=== PATIENT | female | born 1990 | race American Indian/Alaskan Native ===

== ENCOUNTER 2017-06-17 10:27 | Inpatient (IN) | payer MEDICAID ==
[2017-06-17] MEDS ORDERED: SUBLIMAZE IV PRN (13:13)
[2017-06-17] MEDS ORDERED: STADOL IV PRN (13:13)
[2017-06-17] MEDS ORDERED: ZOFRAN IV PRN ×2 (13:13→21:06)
[2017-06-17] MEDS ORDERED: PHENERGAN PR PRN ×2 (13:13→21:06)
[2017-06-17] MEDS ORDERED: BRETHINE SUB-Q PRN (13:13)
[2017-06-17] MEDS ORDERED: MINERAL OIL PO PRN (13:13)
[2017-06-17] MEDS ORDERED: ePHEDrine SULFATE IV PRN ×2 (13:13→15:02)
[2017-06-17] MEDS ORDERED: BRETHINE IVP PRN (13:13)
[2017-06-17] MEDS ORDERED: XYLOCAINE 2% INFILTRATI ONE ×2 (13:13→16:55)
[2017-06-17] MEDS: LACTATED RINGERS 1,000 ML IV SCH ×3 (13:47→18:10)
--- NOTE | 2017-06-17 13:52 | History and Physical Report ---
History of Present Illness Date of examination: 06/17/17 Date of admission: 06/17/17 12:04 Chief complaint: CONTRACTIONS History of present illness: .This is a 26 yo at 39+ weeks came into triage complaining of contractions. patient was noted to be 4cm and mynor. patient admitted to labor and delivery . She is a patient of [facility] since 13 weeks as she was transferred from another facility. Patient has a hx of migraines and mild asthma. 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 denies: smoking, alcohol abuse, prescription drug abuse - Obstetrical History Expected Date of Delivery: 06/25/17 Actual Gestation: 38 Week(s) 6 Day(s) : 3 Para: 0 Hx # Term Pregnancies: 0 Number of Pregnancies: 0 Spontaneous Abortions: 0 Induced : 2 Number of Living Children: 0 Medications and Allergies Allergies Allergy/AdvReac Type Severity Reaction Status Date / Time No Known Allergies Allergy Unverified 06/17/17 10:39 Home Medications Medication Instructions Recorded Confirmed Last Taken Type Prena1 Chew Tablet 1 tab PO DAILY 06/17/17 06/17/17 06/16/17 09:00 History Active Meds: Active Medications Butorphanol Tartrate (Stadol) 2 mg IV Q2H PRN PRN Reason: Pain , Severe (7-10) Ephedrine Sulfate (Ephedrine Sulfate) 10 mg IV Q2M PRN PRN Reason: Hypotension Fentanyl (Sublimaze) 100 mcg IV Q2H PRN PRN Reason: Labor Pain Lactated Ringer's (Lactated Ringers) 1,000 mls @ 125 mls/hr IV DIRECT IZABELLA Last Admin: 06/17/17 13:47 Dose: 125 mls/hr Oxytocin/Sodium Chloride (Pitocin/Ns 20 Unit/1000ml Drip) 20 units in 1,000 mls @ 125 mls/hr IV DIRECT IZABELLA Oxytocin/Sodium Chloride (Pitocin/Ns 30 Unit/500ml) 30 units in 500 mls @ 0 mls /hr IV TITR IZABELLA; Protocol Oxytocin/Sodium Chloride (Pitocin/Ns 30 Unit/500ml) 30 units in 500 mls @ 1 mls /hr IV TITR IZABELLA; Protocol Mineral Oil (Mineral Oil) 30 ml PO QHS PRN PRN Reason: Constipation Ondansetron HCl (Zofran) 4 mg IV Q8H PRN PRN Reason: Nausea And Vomiting Promethazine HCl (Phenergan) 25 mg FL Q6H PRN PRN Reason: N/V if unable to take po Terbutaline Sulfate (Brethine) 0.25 mg SUB-Q ONCE PRN PRN Reason: Hyperstimulation/Hypertonicity Terbutaline Sulfate (Brethine) 0.25 mg IVP ONCE PRN PRN Reason: Hyperstimulation/Hypertonicity Review of Systems All systems: negative Genitourinary: contractions - Vital Signs Vital signs: Vital Signs Pulse BP Pulse Ox 101 H 141/88 100 06/17/17 10:58 06/17/17 10:58 06/17/17 10:58 Temp Pulse Resp BP Pulse Ox 99.3 F 99 H 20 135/69 100 06/17/17 11:21 06/17/17 11:53 06/17/17 11:21 06/17/17 11:21 06/17/17 11:53 - Physical Exam Breasts: Positive: normal Cardiovascular: Regular rate, Normal S1 Lungs: Positive: Clear to auscultation, Normal air movement Abdomen: Positive: normal appearance, soft, normal bowel sounds. Negative: distention, tenderness, guarding Genitourinary (Female): Positive: normal external genitalia, normal perenium Vulva: both: normal Vagina: Positive: normal moisture Uterus: Positive: normal size Anus/Rectum: Positive: normal perianal skin, heme negative Extremities: Positive: normal Deep Tendon Reflex Grade: Normal +2 - Obstetrical FHR: category 1 Uterine Contraction Monitor Mode: External Cervical Dilatation: 4 Cervical Effacement Percentage: 100 station: -1 Uterine Contraction Pattern: Regular Uterine Tone Measurement Phase: Contraction Uterine Contraction Intensity: Moderate Results All other labs normal. Assessment and Plan A/P IUP 38 +6 weeks GBS neg IVF, labs sent offer epidural expect vaginal delivery
[2017-06-17] MEDS ORDERED: PITOCin/NS 20 UNIT/1000ML DRIP 20 UNITS/1,000 ML BAG IV SCH ×2 (14:00→21:06)
[2017-06-17] MEDS ORDERED: PITOCin/NS 30 UNIT/500ML 30 UNITS/500 ML BAG IV SCH (14:00)
[2017-06-17] MEDS: PITOCin/NS 30 UNIT/500ML 30 UNITS/500 ML BAG IV SCH ×4 (14:25→16:33)
[2017-06-17 14:35] LABS: Hematocrit 36.5 % (30.3-42.9); Hemoglobin 12.3 gm/dl (10.1-14.3); Mean Corpuscular HGB Conc 34 % (30-34); Mean Corpuscular Hemoglobin 31 pg (28-32); Mean Corpuscular Volume 92 fl (79-97); Platelet Count 228 K/mm3 (140-440); Red Blood Count 3.96 M/mm3 (3.65-5.03); Red Cell Distribution Width 14.3 % (13.2-15.2)
[2017-06-17] MEDS ORDERED: NARCAN 2 MG/2 ML IV PRN (15:02)
--- NOTE | 2017-06-17 15:02 | Anesthesia Consultation ---
Anesthesia Consult and Med Hx Date of service: 06/17/17 - Airway Anesthetic Teeth Evaluation: Good ROM Head & Neck: Adequate Mental/Hyoid Distance: Adequate Mallampati Class: Class II Intubation Access Assessment: Probably Good - Pre-Operative Health Status ASA Pre-Surgery Classification: ASA2 Proposed Anesthetic Plan: Epidural, Spinal - Pulmonary Hx Asthma: Yes (last attack 2012) COPD: No Hx Pneumonia: No - Cardiovascular System Hx Hypertension: No - Central Nervous System Hx Seizures: No Hx Psychiatric Problems: No - Endocrine Hx Renal Disease: No Hx End Stage Renal Disease: No Hx Hypothyroidism: No Hx Hyperthyroidism: No - Hematic Hx Anemia: No Hx Sickle Cell Disease: No - Other Systems Hx Alcohol Use: No Hx Obesity: Yes (BMI 39.1)
[2017-06-17] MEDS ORDERED: fentaNYL-BUPIV 2 MCG/ML-0.125% 200 MCG/100 ML BAG EPIDURAL SCH (16:00)
[2017-06-17] MEDS ORDERED: XYLOCAINE MPF 2% ONE (18:30)
[2017-06-17] MEDS ORDERED: METHERGINE IM ONE (18:52)
--- NOTE | 2017-06-17 19:06 | Procedure Note ---
OB Delivery Note - Delivery Date of Delivery: 06/17/17 Surgeon: CHRISTINA KRAFT Estimated blood loss: other (400 mL) - Vaginal Delivery presentation: vertex Delivery position: OP Intrapartum events: meconium, prolonged active phase, mult.variable deceleratio Delivery induction: none Delivery augmentation: rupture of membranes, pitocin Delivery monitor: external FHT, external uterine Route of delivery: vacuum extraction Indicators for instrumentation: nonreassuring FHR tracing Delivery placenta: spontaneous Delivery cord: 3 umbilical vessels Episiotomy: none Delivery laceration: 1st degree Delivery repair: vicryl Anesthesia: epidural Delivery comments: Pt progressed to complete/complete/+1 and pushed to deliver a viable female over intact perineum via VAVD under epidural anesthesia. Head visible at introitus without pushing. Head noted to be in LOP position. Kiwi vacuum applied. Head delivered with two pulls, one pop off. Shoulders and body delivered easily. Cord clamped and cut and handed to NICU staff in attendance. Placenta delivered spontaneously (3VC, intact). Vagina and perineum explored. First degree perineal repaired with a figure of eight of 3-0 Vicryl. EBL 400 mL. - Infant A at 1 minute: 8 at 5 minutes: 9 Gender: Female (2874g (6lb 5oz) @ 1845 pm)
[2017-06-17] MEDS ORDERED: LANSINOH TP PRN (21:06)
[2017-06-17] MEDS ORDERED: SODIUM CHLORIDE FLUSH SYRINGE 10 ML IV NR (21:06)
[2017-06-17] MEDS ORDERED: TUCKS PAD TP PRN (21:06)
[2017-06-17] MEDS ORDERED: MILK OF MAGNESIA PO PRN (21:06)
[2017-06-17] MEDS ORDERED: TYLENOL PO PRN (21:06)
[2017-06-17] MEDS ORDERED: DULCOLAX PR PRN (21:06)
[2017-06-17] MEDS ORDERED: PHENERGAN PO PRN (21:06)
[2017-06-17] MEDS ORDERED: BENADRYL PO PRN (21:06)
[2017-06-17] MEDS: MOTRIN PO SCH (21:55)
[2017-06-17] MEDS: FEOSOL PO SCH (21:55)
[2017-06-18] MEDS: MOTRIN PO SCH ×4 (03:53→22:04)
[2017-06-18 06:23] LABS: Hematocrit 33.3 % (30.3-42.9)
[2017-06-18] MEDS: NORCO 5/325 PO PRN (06:28)
--- NOTE | 2017-06-18 07:59 | Progress Note ---
Assessment and Plan O: VSS AF PP H/H: 11.0/33.3 A: Stable PP Day 1 Subjective - Subjective Date of service: 06/18/17 Patient reports: appetite normal, voiding normally, pain well controlled (r/o left side ligament/hip pain. po meds releive discomfort. Able to ambulate w/o assist and has rule range of motion, ), flatus, ambulating normally : doing well, in NICU Objective - Vital Signs Latest vital signs: Vital Signs Temp Pulse Resp BP BP Pulse Ox 06/18/17 04:10 98.9 F 87 20 112/66 06/17/17 21:43 99.0 F 109 H 20 150/82 06/17/17 20:11 117 H 100 06/17/17 20:06 117 H 100 06/17/17 20:05 115 H 149/81 06/17/17 20:01 117 H 100 06/17/17 20:00 98.9 F 118 H 18 140/60 99 06/17/17 19:56 119 H 100 06/17/17 19:51 122 H 99 06/17/17 19:50 117 H 143/65 06/17/17 19:46 124 H 98 06/17/17 19:45 117 H 143/65 99 06/17/17 19:41 50 L 84 06/17/17 19:36 121 H 143/96 95 06/17/17 19:31 123 H 99 06/17/17 19:30 126 H 143/96 100 06/17/17 19:26 121 H 98 06/17/17 19:21 123 H 100 06/17/17 19:20 125 H 141/66 90 06/17/17 19:15 121 H 141/66 06/17/17 19:05 125 H 148/70 95 06/17/17 19:04 129 H 82 L 06/17/17 19:00 99.4 F 121 H 16 141/66 95 06/17/17 18:56 116 H 144/65 06/17/17 18:35 107 H 76 L 06/17/17 18:21 100 H 136/73 06/17/17 18:15 114 H 100 06/17/17 18:10 116 H 99 06/17/17 18:05 114 H 100 06/17/17 18:03 104 H 89 06/17/17 18:00 104 H 100 06/17/17 17:55 103 H 99 06/17/17 17:50 104 H 134/68 100 06/17/17 17:49 113 H 92 06/17/17 17:45 108 H 98 06/17/17 17:35 112 H 100 06/17/17 17:33 117 H 94 06/17/17 17:30 110 H 100 06/17/17 17:28 108 H 90 06/17/17 17:25 112 H 100 06/17/17 17:20 109 H 136/79 100 06/17/17 17:15 102 H 100 06/17/17 17:10 95 H 100 06/17/17 16:51 97 H 140/99 06/17/17 16:21 86 135/78 06/17/17 15:46 100 H 137/74 06/17/17 15:40 105 H 133/76 06/17/17 15:34 106 H 129/70 06/17/17 15:29 129 H 143/81 06/17/17 15:24 109 H 143/80 100 06/17/17 15:20 118 H 143/86 06/17/17 15:19 129 H 100 06/17/17 15:14 115 H 135/98 100 06/17/17 15:09 124 H 100 06/17/17 13:53 106 H 134/77 06/17/17 13:48 98.2 F 106 H 16 134/77 06/17/17 11:53 99 H 100 06/17/17 11:48 101 H 100 06/17/17 11:43 97 H 100 06/17/17 11:38 101 H 100 06/17/17 11:33 96 H 100 06/17/17 11:28 113 H 99 06/17/17 11:23 109 H 100 06/17/17 11:21 99.3 F 101 H 20 135/69 99 06/17/17 11:18 92 H 99 06/17/17 11:13 104 H 99 06/17/17 11:08 89 99 06/17/17 11:03 93 H 100 06/17/17 11:02 92 H 135/69 06/17/17 10:58 101 H 141/88 100 Intake and Output 06/17/17 06/18/17 06/18/17 22:59 06:59 14:59 Intake Total 951.228 7932 Output Total 900 500 600 Balance -180.817 500 -600 Intake: IV 845.133 3525 Lactated Ringers 1,000 ml 464.583 @ 125 mls/hr IV DIRECT IZABELLA Rx#:[id number] PITOCin/NS 20 UNIT/1000ML 1000 DRIP 20 units In 1,000 ml @ 250 mls/hr IV DIRECT IZABELLA Rx#:[id number] PITOCin/NS 30 UNIT/500ML 14.600 30 units In 500 ml @ As Directed IV TITR IZABELLA Rx#: [id number] Oral 240 Output: Urine 900 500 600 Void 900 500 600 Other: Total, Intake Amount 240 Total, Output Amount 900 500 600 # Voids Void 1 1 Estimated Blood Loss 400 - Exam Breasts: Present: deferred Lungs: Present: Normal air movement Abdomen: Present: normal appearance, soft. Absent: distention, tenderness Uterus: Present: normal, firm, fundal height below umbilicus (2 below U, ML). Absent: bogginess Extremities: Present: normal - Labs Labs: Abnormal lab results 06/17/17 Range/Units 14:15 WBC 12.1 H (4.5-11.0) K/mm3
[2017-06-18] MEDS: FEOSOL PO SCH ×2 (09:53→22:04)
[2017-06-18] MEDS ORDERED: M-M-R II VACCINE SUB-Q ONE (19:08)
[2017-06-18] MEDS ORDERED: BOOSTRIX IM ONE (19:08)
[2017-06-19] MEDS: MOTRIN PO SCH (04:57)
[2017-06-19] MEDS: FEOSOL PO SCH ×2 (09:25→21:30)
[2017-06-19] MEDS: NORCO 5/325 PO PRN (09:25)
--- NOTE | 2017-06-19 16:04 | Progress Note ---
Assessment and Plan A: PPD#2 s/p VAVD at term P: Discharge home today. Subjective - Subjective Date of service: 06/19/17 Principal diagnosis: Gestational HTN, s/p VAVD at term Interval history: Pt without complaints. Denies PIH symptoms. Patient reports: appetite normal, voiding normally, pain well controlled, ambulating normally, no nauseated : in NICU (but plan to discharge home today ) Objective - Vital Signs Latest vital signs: Vital Signs Temp Pulse Resp BP BP Pulse Ox 06/19/17 00:00 98.4 F 78 20 142/73 06/18/17 16:19 97.6 F 72 16 114/68 98 Intake and Output 06/19/17 06/19/17 06/19/17 06:59 14:59 22:59 Intake Total 240 Balance 240 Intake: Oral 240 Other: Total, Intake Amount 240 # Voids Void 1 - Exam Breasts: Present: deferred Cardiovascular: Present: Regular rate Lungs: Present: Clear to auscultation Abdomen: Present: soft (obese) Uterus: Present: fundal height below umbilicus Extremities: Present: edema
--- NOTE | 2017-06-19 16:04 | Discharge Summary ---
Providers - Providers Date of Admission: 06/17/17 12:04 Date of discharge: 06/19/17 Attending physician: CHRISTINA KRAFT 06/17/17 21:06 Consult to Hotel Sales Manager [CONS] Routine Reason For Exam: assistance with , SNS Primary care physician: CHRISTINA KRAFT Hospitalization Reason for admission: active labor Delivery: vacuum extraction Procedure details: Please see delivery note. Episiotomy: none Laceration: 1st degree Other procedures: none complications: none Discharge diagnosis: IUP at term delivered [place] baby: female Hospital course: Pt was admitted in active labor and went on to have an vacuum delivery which she tolerated well. Her course was complicated by gestational hypertension. She met discharge criteria on PPD#2. She will follow up in 1 week for an incision check. Condition at discharge: Stable Disposition: DC-01 TO HOME OR SELFCARE - Discharge Diagnoses (1) Term of female Status: Acute (2) Obesity Status: Acute Qualifiers: Obesity type: unspecified obesity type Obesity classification: adult class 2 (BMI 35 - 39.9) Body mass index: BMI 39.0-39.9 (3) Gestational hypertension affecting first Status: Acute Plan - Discharge Medications Prescriptions: HYDROcodone/APAP 5-325 [[place] 5/325] 1 each PO Q6HR PRN #20 tablet PRN Reason: Pain Ibuprofen [Motrin] 800 mg PO Q8HR PRN #30 tablet PRN Reason: Pain - Provider Discharge Summary Activity: routine, no sex for 6 weeks, no heavy lifting 4 weeks, no strenuous exercise Diet: routine Instructions: routine Additional instructions: [] Smoking cessation referral if applicable(refer to patient education folder for contact #) [] Refer to [facility] Booklet Call your doctor immediately for: * Fever > 100.5 * Heavy vaginal bleeding ( >1 pad per hour) * Severe persistent headache * Shortness of breath * Reddened, hot, painful area to leg or breast * Drainage or odor from incision. * Keep incision clean and dry at all times and follow doctor's instructions regarding bathing/showering - Follow up plan Follow up: ANEUDY CLARK CNM [Advanced Practice Nurse] - 07/15/17 (please schedule exam )
[2017-06-19 16:33] LABS: Hematocrit 35.6 % (30.3-42.9); Hemoglobin 11.8 gm/dl (10.1-14.3); Mean Corpuscular HGB Conc 33 % (30-34); Mean Corpuscular Hemoglobin 31 pg (28-32); Mean Corpuscular Volume 94 fl (79-97); Platelet Count 247 K/mm3 (140-440); Red Blood Count 3.79 M/mm3 (3.65-5.03); Red Cell Distribution Width 14.5 % (13.2-15.2)
[2017-06-19 16:56] LABS: Alanine Aminotransferase 15 units/L (7-56); Uric Acid 5.9 mg/dL (3.5-7.6)
[2017-06-19 19:18] LABS: Bacteria,Urine 1+ /HPF (Negative); Bilirubin,Urine NEG (Negative); Blood,Urine LG (Negative); Color,Urine Yellow (Yellow); Mucus,Urine FEW /HPF
[2017-06-20 03:33] VITALS: BP 146/88
== END 2017-06-19 22:15 | disposition home or self-care (01) | DRG 774 ==
LOC: TRG 10:27 → LD 12:04 → OB 20:39
PROVIDERS: ADMIT Obstetrics & Gynecology; ATTEND Obstetrics & Gynecology
PROC: 3E0R3BZ Introduction of Anesthetic Agent into Spinal Canal, Percutaneous Approach (ICD-10-PCS; principal; 2017-06-17)
PROC: 00HU33Z Insertion of Infusion Device into Spinal Canal, Percutaneous Approach (ICD-10-PCS; 2017-06-17)
PROC: 0HQ9XZZ Repair Perineum Skin, External Approach (ICD-10-PCS; 2017-06-17)
PROC: 10D07Z6 Extraction of Products of Conception, Vacuum, Via Natural or Artificial Opening (ICD-10-PCS; 2017-06-17)
PROC: 3E0234Z Introduction of Serum, Toxoid and Vaccine into Muscle, Percutaneous Approach (ICD-10-PCS; 2017-06-18)
DX: O77.0 Labor and delivery complicated by meconium in amniotic fluid (principal); O13.4 Gestational [pregnancy-induced] hypertension without significant proteinuria, complicating childbirth; O99.214 Obesity complicating childbirth; E66.9 Obesity, unspecified; O76 Abnormality in fetal heart rate and rhythm complicating labor and delivery; O70.0 First degree perineal laceration during delivery; Z3A.39 39 weeks gestation of pregnancy; Z37.0 Single live birth; Z68.39 Body mass index [BMI] 39.0-39.9, adult; Z23 Encounter for immunization
CPT/HCPCS: 36415; 81001; 82565; 83615; 84450; 84460; 84550; 85014; 85018; 85027; 86592; 86850; 86900; 86901; 99211; G0463; J2210; J2405; J2590; J3010; J7120

== ENCOUNTER 2017-07-20 15:00 | Inpatient (IN) | payer OTHER, MEDICAID ==
[2017-07-20] MEDS ORDERED: MAGNESIUM SULFATE 4GM/100ML 4 GM/100 ML BAG IV ONE (16:46)
[2017-07-20 20:37] LABS: Hematocrit 38.2 % (30.3-42.9); Hemoglobin 12.8 gm/dl (10.1-14.3); Mean Corpuscular HGB Conc 34 % (30-34); Mean Corpuscular Hemoglobin 31 pg (28-32); Mean Corpuscular Volume 92 fl (79-97); Platelet Count 254 K/mm3 (140-440); Red Blood Count 4.14 M/mm3 (3.65-5.03); Red Cell Distribution Width 14.9 % (13.2-15.2)
[2017-07-20 20:41] LABS: Bilirubin,Urine NEG (Negative); Blood,Urine NEG (Negative); Color,Urine Yellow (Yellow); Mucus,Urine FEW /HPF; Protein,Urine <15 mg/dL mg/dL (Negative)
[2017-07-20 21:17] LABS: BUN/Creatinine Ratio 17; Blood Urea Nitrogen 10 mg/dL (7-17); Calcium 9.3 mg/dL (8.4-10.2); Hemolysis Index 6
[2017-07-20] MEDS: LACTATED RINGERS 1,000 ML IV SCH (21:19)
[2017-07-20] MEDS: MAGNESIUM SULFATE 40GM/1000ML 40 GM/1,000 ML BAG IV SCH (21:19)
[2017-07-21] MEDS: LACTATED RINGERS 1,000 ML IV SCH (09:00)
--- NOTE | 2017-07-21 09:06 | Progress Note ---
Assessment and Plan - Patient Problems (1) Pre-eclampsia, Current Visit: Yes Status: Acute Plan to address problem: Will initiate pain medicine for headaches Complete 24 hours of magnesium therapy Subjective - Subjective Date of service: 07/21/17 Interval history: The patient was admitted for preeclampsia. The patient had elevated blood pressures and headaches while being seen in the office. She was admitted for 24 hours of magnesium therapy. Today she reports still having a headache. She is currently normotensive and her laboratories are normal. Patient reports: appetite normal, voiding normally, no pain well controlled : doing well Objective - Vital Signs Latest vital signs: Vital Signs Temp Pulse Pulse Resp BP BP BP 07/21/17 06:00 07/21/17 05:09 97.6 F 77 20 127/72 07/21/17 05:00 07/21/17 04:00 07/21/17 03:09 98.4 F 85 20 118/65 07/21/17 03:05 07/21/17 02:00 07/21/17 01:09 97.7 F 89 20 129/72 07/21/17 00:00 07/20/17 22:10 07/20/17 21:00 98.1 F 84 20 130/75 07/20/17 20:55 98.4 F 78 20 130/75 07/20/17 20:50 98.1 F 80 18 140/75 07/20/17 20:45 98 F 90 20 144/75 07/20/17 20:40 98.4 F 82 20 130/80 07/20/17 20:35 98.4 F 86 18 132/80 07/20/17 20:30 98.4 F 74 18 140/80 07/20/17 18:10 98.3 F 80 80 20 150/85 Pulse Ox 07/21/17 06:00 100 07/21/17 05:09 100 07/21/17 05:00 99 07/21/17 04:00 99 07/21/17 03:09 99 07/21/17 03:05 100 07/21/17 02:00 100 07/21/17 01:09 98 07/21/17 00:00 99 07/20/17 22:10 98 07/20/17 21:00 07/20/17 20:55 07/20/17 20:50 07/20/17 20:45 98 07/20/17 20:40 07/20/17 20:35 07/20/17 20:30 07/20/17 18:10 Intake and Output 07/20/17 07/21/17 07/21/17 22:59 06:59 14:59 Other: Voiding Method Indwelling Catheter Weight 96.615 kg - Labs Labs: Abnormal lab results 07/20/17 07/20/17 Range/Units 20:13 Unknown Creatinine 0.6 L (0.7-1.2) mg/dL Urine Creatinine 181.2 H (0.1-20.0) mg/dL
[2017-07-21] MEDS: PERCOCET 5/325 PO PRN ×2 (09:50→17:55)
--- NOTE | 2017-07-21 13:10 | History and Physical Report ---
History of Present Illness Date of examination: 07/20/17 Date of admission: 07/20/17 17:43 History of present illness: 26 yo 4 weeks ago 06/17/17 at term. Presented to office for 4 week routine visit with c/o persistent COYNE since delivery not reported and elevated BP x 2 of 160/100 and 158/110. Kulwinder scotoma, blurred vision or epigastric pain. 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) Family/Genetic History: heart disease, hypertension Social history: no significant social history, single - Obstetrical History : 3 Medications and Allergies Allergies Allergy/AdvReac Type Severity Reaction Status Date / Time No Known Allergies Allergy Unverified 06/17/17 10:39 Home Medications Medication Instructions Recorded Confirmed Last Taken Type Prena1 Chew Tablet 1 tab PO DAILY 06/17/17 07/21/17 06/16/17 09:00 History HYDROcodone/APAP 5-325 [[place] 1 each PO Q6HR PRN #20 tablet 06/19/17 07/21/17 Unknown Rx 5/325] Ibuprofen [Motrin] 800 mg PO Q8HR PRN #30 tablet 06/19/17 07/21/17 Unknown Rx Active Meds: Active Medications Lactated Ringer's (Lactated Ringers) 1,000 mls @ 125 mls/hr IV DIRECT IZABELLA Last Admin: 07/21/17 09:00 Dose: 125 mls/hr Magnesium Sulfate (Magnesium Sulfate 40gm/1000ml) 40 gm in 1,000 mls @ 50 mls/ hr IV DIRECT IZABELLA Last Admin: 07/20/17 21:19 Dose: 2 gm/hr, 50 mls/hr Oxycodone/Acetaminophen (Percocet 5/325) 2 tab PO Q4H PRN PRN Reason: Pain, Moderate (4-6) Last Admin: 07/21/17 09:50 Dose: 2 tab Review of Systems All systems: negative Constitutional: chronic headaches Eyes: no blurred vision, no loss of peripheral vision, no loss of vision, no blind spots Ears, nose, mouth and throat: deferred, headache Cardiovascular: no chest pain, no edema Breasts: no deferred Gastrointestinal: no vomiting Genitourinary: other (healed laceration), no deferred Rectal Exam: deferred Integumentary: deferred Neurological: headaches, no head injury, no loss of vision - Vital Signs Vital signs: Vital Signs Temp Pulse Resp BP 98.3 F 80 20 150/85 07/20/17 18:10 07/20/17 18:10 07/20/17 18:10 07/20/17 18:10 Temp Pulse Resp BP Pulse Ox 98.0 F 83 18 117/67 98 07/21/17 07:59 07/21/17 07:59 07/21/17 07:59 07/21/17 07:59 07/21/17 07:59 - Physical Exam Breasts: Positive: deferred Abdomen: Positive: normal appearance Results Result Diagrams: 07/20/17 20:13 07/20/17 20:13 Abnormal lab results 07/20/17 07/20/17 Range/Units 20:13 Unknown Creatinine 0.6 L (0.7-1.2) mg/dL Urine Creatinine 181.2 H (0.1-20.0) mg/dL All other labs normal. Assessment and Plan O: BP yesterday as noted in H&P A: 4 weeks Elevated BP's P: MD consult Admit for magnesium sulfate x 24 hrs
[2017-07-21] MEDS: MAGNESIUM SULFATE 40GM/1000ML 40 GM/1,000 ML BAG IV SCH (17:10)
--- NOTE | 2017-07-22 08:12 | Progress Note ---
Assessment and Plan A: preeclampsia Headache- chronic issue, declines inpatient Neurology consult P: Discharge home with follow up in 1 week in the office. Subjective - Subjective Date of service: 07/22/17 Principal diagnosis: preeclampsia, headache Interval history: Pt reports that she has a headache, but they are the same headaches that she has been experiencing since middle school. She has not followed up with a Neurologist, but declines Neurology consultation in house. She asks for discharge home as soon as possible. Patient reports: appetite normal Objective - Vital Signs Latest vital signs: Vital Signs Temp Pulse Resp Resp BP BP Pulse Ox 07/22/17 06:46 20 07/22/17 05:14 98.5 F 73 20 121/65 98 07/22/17 04:25 20 07/22/17 01:33 80 20 130/77 99 07/21/17 20:42 97.7 F 76 20 134/71 92 07/21/17 18:35 78 18 123/70 100 07/21/17 17:55 20 07/21/17 16:24 69 18 133/87 99 07/21/17 14:00 69 16 109/61 07/21/17 11:17 71 18 125/63 94 Intake and Output 07/21/17 07/22/17 07/22/17 22:59 06:59 14:59 Intake Total 1712.5 360 Output Total 1600 1300 Balance 112.5 -940 Intake: IV 992.5 MAGNESIUM SULFATE 40GM/ 992.5 1000ML 40 gm In 1,000 ml @ 2 GM/HR 50 mls/hr IV DIRECT IZABELLA Rx#:[id number] Oral 720 Intake, Free Water 360 Output: Urine 1600 1300 Indwelling Catheter 1600 1300 Other: Total, Intake Amount 480 Total, Output Amount 700 200 Voiding Method Toilet Weight 96.61 kg - Exam Breasts: Present: deferred Cardiovascular: Present: Regular rate Lungs: Present: Clear to auscultation Extremities: Present: normal
--- NOTE | 2017-07-22 08:15 | Discharge Summary ---
Providers - Providers Date of Admission: 07/20/17 17:43 Date of discharge: 07/22/17 Attending physician: EUSEBIO MYRICK MD Primary care physician: EUSEBIO MYRICK MD Hospitalization Reason for admission: other ( preeclampsia ) Procedure details: IV magnesium administration Discharge diagnosis: other ( preeclampsia, headache ) Hospital course: Pt was admitted for preeclampsia. She received 24 hr of magnesium therapy as well as observation afterwards. She met discharge criteria on HD#2. She will follow up in the office in 1 week. Condition at discharge: Stable Disposition: DC-01 TO HOME OR SELFCARE - Discharge Diagnoses (1) Headache Status: Acute Qualifiers: Headache chronicity pattern: chronic headache Intractability: not intractable (2) Pre-eclampsia, Status: Acute (3) Term of female Status: Acute Plan - Discharge Medications Prescriptions: Codeine/Butalbital/ASA/Caffein [Fiorinal with Codeine #3 Cap] 1 each PO Q6H PRN #30 capsule PRN Reason: Headache HYDROcodone/APAP 5-325 [[place] 5/325] 1 each PO Q6HR PRN #20 tablet PRN Reason: Pain - Provider Discharge Summary Activity: routine Diet: routine Instructions: routine Additional instructions: [] Smoking cessation referral if applicable(refer to patient education folder for contact #) [] Refer to [facility] Booklet Call your doctor immediately for: * Fever > 100.5 * Heavy vaginal bleeding ( >1 pad per hour) * Severe persistent headache * Shortness of breath * Reddened, hot, painful area to leg or breast * Drainage or odor from incision. * Keep incision clean and dry at all times and follow doctor's instructions regarding bathing/showering - Follow up plan Follow up: ANEUDY CLARK CNM [Advanced Practice Nurse] - 7 Days
[2017-07-22] MEDS ORDERED: FIORICET PO PRN (09:00)
[2017-07-22 12:22] VITALS: BP 143/86
== END 2017-07-22 11:30 | disposition home or self-care (01) | DRG 776 ==
LOC: UNDOADMIN 15:00 → 3A 15:00 → OB 17:43
PROVIDERS: ADMIT Obstetrics & Gynecology; ATTEND Obstetrics & Gynecology
DX: O14.95 Unspecified pre-eclampsia, complicating the puerperium (principal); Z82.49 Family history of ischemic heart disease and other diseases of the circulatory system
CPT/HCPCS: 36415; 80048; 81001; 82565; 82570; 83735; 84550; 85027; 85730; J3475; J7120